=== PATIENT | male | born 1985 | race Caucasian/White ===

== ENCOUNTER 2019-05-05 22:00 | Emergency (ER) | payer OTHER ==
[2019-05-05 22:43] VITALS: BP 146/80; PULSE 103
--- NOTE | 2019-05-05 23:34 | EDM.PDOC ---
<Brennen Grant - Last Filed: 05/05/19 23:22> ED HPI GENERAL MEDICAL PROBLEM - General Chief Complaint: Laceration Stated Complaint: CUT FINGER Time Seen by Provider: 05/05/19 22:49 - History of Present Illness INITIAL COMMENTS - FREE TEXT/NARRATIVE: HISTORY AND PHYSICAL: History of present illness: Samuel is a 34 year old male who present to the ER for the evaluation of a cut to his left hand. The patient was attempting to open an a box with a double edge knife and accidently cut his hand. The patient informed he has been able to move his hand since the incident and denies major blood loss or previous injury to the hand.The patient is states he is up to date with his vaccinations. Review of systems: As per history of present illness and below otherwise all systems reviewed and negative. Past medical history: As per history of present illness and as reviewed below otherwise noncontributory. Surgical history: As per history of present illness and as reviewed below otherwise noncontributory. Social history: No reported history of drug or alcohol abuse. Family history: As per history of present illness and as reviewed below otherwise noncontributory. Physical exam: HEENT: Atraumatic, normocephalic, pupils reactive, negative for conjunctival pallor or scleral icterus, mucous membranes moist, throat clear, neck supple, nontender, trachea midline. Lungs: Clear to auscultation, breath sounds equal bilaterally, chest nontender. Heart: S1S2, regular, negative for clicks, rubs, or JVD. Abdomen: Deferred. Pelvis: Stable nontender. Genitourinary: Deferred. Rectal: Deferred. Extremities: Approximately 2.5 cm horizontal laceration to the webspace of the 1st and 2nd digit of the left hand. No tendon or connective tissue visible. Full sensation- full range of movement, Cap refill < 3sec. Neuro: Awake, alert, oriented. Cranial nerves II through XII unremarkable. Cerebellum unremarkable. Motor and sensory unremarkable throughout. Exam nonfocal. Diagnostics: None Therapeutics: Wound Closure with 2 simple interrupted sutures Impression: Laceration to the webspace of the first and 2nd digit of the left hand Plan: The patient should return to the ED for suture removal in 7 days. Educated the patient keeping the wound clean and dry. May apply OTC antibiotic ointment for two days. Definitive disposition and diagnosis as appropriate pending reevaluation and review of above. left hand Pain Score (Numeric/FACES): 3 - Related Data Allergies Allergy/AdvReac Type Severity Reaction Status Date / Time doxycycline Allergy Hives Verified 05/05/19 22:43 Home Meds: Home Meds . [No Known Home Meds] 08/23/15 [History] Past Medical History - Past Health History Medical/Surgical History: Denies Medical/Surgical History Endocrine/Metabolic History: Reports: Obesity/BMI 30+ - Past Surgical History Male Surgical History: Reports: Vasectomy Social & Family History - Family History Family Medical History: Noncontributory - Tobacco Use Smoking Status *Q: Current Every Day Smoker Years of Tobacco use: 15 Packs/Tins Daily: 1 - Recreational Drug Use Recreational Drug Use: No Course - Vital Signs Last Recorded V/S: Last Vital Signs Temp 36.3 C 05/05/19 22:30 Pulse 103 H 05/05/19 22:30 Resp 18 05/05/19 22:30 BP 146/80 H 05/05/19 22:30 Pulse Ox 95 05/05/19 22:30 - Orders/Labs/Meds Meds: Medications Discontinued Medications Generic Name Dose Route Start Last Admin Trade Name Freq PRN Reason Stop Dose Admin Bacitracin 1 dose 05/05/19 23:42 Bacitracin Oint 1 Gm TOP 05/05/19 23:43 ONETIME ONE Lidocaine HCl 5 ml 05/05/19 22:42 05/05/19 23:02 Xylocaine-Mpf 1% INJECT 05/05/19 22:43 5 ml ONETIME ONE Administration Departure - Departure Disposition: Home, Self-Care 01 Clinical Impression: Hand laceration Qualifiers: Encounter type: initial encounter Foreign body presence: without foreign body Laterality: left Qualified Code(s): S61.412A - Laceration without foreign body of left hand, initial encounter - Discharge Information Instructions: Puncture Wound, [id number] Referrals: PCP,None [Primary Care Provider] - Forms: ED Department Discharge Additional Instructions: The following information is given to patients seen in the emergency department who are being discharged to home. This information is to outline your options for follow-up care. We provide all patients seen in our emergency department with a follow-up referral. The need for follow-up, as well as the timing and circumstances, are variable depending upon the specifics of your emergency department visit. If you don't have a primary care physician on staff, we will provide you with a referral. We always advise you to contact your personal physician following an emergency department visit to inform them of the circumstance of the visit and for follow-up with them and/or the need for any referrals to a consulting specialist. The emergency department will also refer you to a specialist when appropriate. This referral assures that you have the opportunity for follow-up care with a specialist. All of these measure are taken in an effort to provide you with optimal care, which includes your follow-up. Under all circumstances we always encourage you to contact your private physician who remains a resource for coordinating your care. When calling for follow-up care, please make the office aware that this follow-up is from your recent emergency room visit. If for any reason you are refused follow-up, please contact the [facility] Emergency Department at and asked to speak to the emergency department charge nurse. [facility] [address] [place] [address] [place] [address] 1. Keep the area clean and dry. Continue to monitor for signs of infection as discussed. Sutures to be removed in 7-10 days. 2. Tylenol and/or ibuprofen as directed and as needed for pain management and discomfort. 3. Please follow-up with your primary care provider as discussed. Return to the ED as needed and as discussed. <Ojeda,Pretty - Last Filed: 05/05/19 23:54> ED HPI GENERAL MEDICAL PROBLEM - General Source of Information: Reports: Patient History Limitations: Reports: No Limitations - History of Present Illness INITIAL COMMENTS - FREE TEXT/NARRATIVE: I have personally and physically see the patient and agree with the above note as I am the supervising provider for this patient. Notes: The laceration is superficial and does not extend into the subcutaneous tissue. Minimal bleeding and full ROM of left extremity without difficulty or deficit. Capillary refill less than 2 seconds with radial pulses grossly intact of the left extremity. Discussed the importance for follow-up with a primary care provider. Voices understanding and is agreeable to plan of care. Denies any further questions or concerns at this time. Therapeutics: Up-to-date on tdap Prescription: None Impression: Hand laceration Plan: 1. Keep the area clean and dry. Continue to monitor for signs of infection as discussed. Sutures to be removed in 7-10 days. 2. Tylenol and/or ibuprofen as directed and as needed for pain management and discomfort. 3. Please follow-up with your primary care provider as discussed. Return to the ED as needed and as discussed. Definitive disposition and diagnosis as appropriate pending reevaluation and review of above. ED ROS GENERAL - Review of Systems Review Of Systems: ROS reveals no pertinent complaints other than HPI. ED EXAM, SKIN/RASH Exam: See Below (See dictation) ED SKIN PROCEDURES - Laceration/Wound Repair Left Hand Lac/Wound length In cm: 2.5 Appearance: Superficial, Linear, Clean Distal NVT: Neuro & Vascular Intact, No Tendon Injury Local Anesthesia - Lidocaine (Xylocaine): 1% Plain Local Anesthetic Volume: 5cc Skin Prep: Providone-Iodine (Betadine) Saline Irrigation (cc's): 50 Exploration/Debridement/Repair: Wound Explored, In a Bloodless Field, Explored to Base, No Foreign Material Found # of Sutures: 2 Suture Type: Silk, Interrupted Drain Placement: No Sterile Dressing Applied: Nurse Tetanus Status Addressed: Yes (up to date) Complications: No Departure - Departure Time of Disposition: 23:40
[2019-05-05] MEDS ORDERED: Bacitracin Oint 1 GM U/D Packet TOP ONE (23:42)
== END 2019-05-05 23:51 | disposition home or self-care (01) ==
LOC: MW.ED 22:00
DX: S61.412A Laceration without foreign body of left hand, initial encounter (principal); F17.210 Nicotine dependence, cigarettes, uncomplicated; Z88.1 Allergy status to other antibiotic agents; W26.0XXA Contact with knife, initial encounter
CPT/HCPCS: 12001; 99282; J2001; 99283

== ENCOUNTER 2020-04-13 19:15 | Emergency (ER) | payer OTHER ==
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
[2020-04-13] MEDS ORDERED: Sodium Chloride 0.9% 1,000 ML IV ONE (19:43)
[2020-04-13 20:01] LABS: BLOOD UREA NITROGEN,BUN 15 mg/dL (7.0-18.0); CARBON DIOXIDE,CO2 25.9 mmol/L (21.0-32.0); CHLORIDE,CL 105 mmol/L (98-107); GLUCOSE RANDOM 102 mg/dL (74-106); POTASSIUM,K 4.1 mmol/L (3.5-5.1); SODIUM,NA 140 mmol/L (136-148)
[2020-04-13 21:05] VITALS: BP 119/71; PULSE 85
== END 2020-04-13 21:04 | disposition home or self-care (01) ==
LOC: MW.ED 19:15
DX: T67.5XXA Heat exhaustion, unspecified, initial encounter (principal); E66.9 Obesity, unspecified; Z68.34 Body mass index [BMI] 34.0-34.9, adult; Z88.1 Allergy status to other antibiotic agents
CPT/HCPCS: 36415; 80053; 82550; 83735; 84484; 85025; 93005; 99284; J7030; 99282

== ENCOUNTER 2021-06-09 10:52 | Emergency (ER) | payer OTHER ==
[2021-06-09] MEDS ORDERED: Ondansetron 4 MG/2 ML SDV IVPUSH ONE (11:15)
[2021-06-09] MEDS ORDERED: Ketorolac 30 MG/ML SDV IVPUSH ONE (11:15)
[2021-06-09] MEDS ORDERED: Sodium Chloride 0.9% 1,000 ML IV ONE ×2 (11:15→12:31)
[2021-06-09] MEDS ORDERED: Sodium Chloride 0.9% 10 ML Syringe FLUSH PRN (11:16)
[2021-06-09] MEDS ORDERED: Sodium Chloride 0.9% 2.5 ML Syringe FLUSH PRN (11:16)
--- NOTE | 2021-06-09 11:23 | PCM.EKG ---
#1 Interpretation EKG Date: 06/09/21 Time: 11:01 Rhythm: NSR Rate (Beats/Min): 82 [place]: Normal P-Wave: Present QRS: Normal (q eave lead III, unchanged) ST-T: Normal (T wave inversion lead III unchanged) QT: Normal Comparison: No Change (04/13/20) EKG Interpretation Comments: Sinus Rhythm with nonspecific T wave inversion. S1Q3T3 unchanged
--- NOTE | 2021-06-09 11:26 | EDM.PDOC ---
ED HPI GENERAL MEDICAL PROBLEM - General Chief Complaint: General Stated Complaint: BREATHING PROBLEMS, CHEST PAIN Time Seen by Provider: 06/09/21 11:01 Source of Information: Reports: Patient History Limitations: Reports: No Limitations - History of Present Illness INITIAL COMMENTS - FREE TEXT/NARRATIVE: HISTORY AND PHYSICAL: History of present illness: Patient is a 36-year-old male who presents to the emergency department with complaints of cough, sweats and fatigue for approximately 1 week. The patient states that yesterday he started getting chest tightness and vomiting. He has been unable to eat not due to a decreased appetite but he has just been too fatigued. The patient states that he was seen by a physician on Thursday and prescribed Augmentin for a strep throat. The patient states that he started having diarrhea Thursday evening. Patient states that he has had some dizzy episodes and has been alternating between hot and cold flashes. Patient denies any fever, change in vision, syncope or near syncope. Denies any chest pain, back pain, shortness of breath or cough. Denies any abdominal pain, constipation or dysuria. Has not noted any blood in urine or stool. The patient states that he has been tested for Covid in the past but tested negative. He has not received Covid vaccine. In the emergency department the patient is hemodynamically stable with a blood pressure of 125/77, pulse 74, SPO2 99%, respiration rate 22 and shallow, temperature 97.6. Review of systems: As per history of present illness and below otherwise all systems reviewed and negative. Past medical history: As per history of present illness and as reviewed below otherwise noncontributory. Surgical history: As per history of present illness and as reviewed below otherwise noncontributory. Social history: See social history for further information Family history: As per history of present illness and as reviewed below otherwise noncontributory. Physical exam: General: Well developed and well nourished. Alert and orientated x 3. Nontoxic in appearance and in mild distress. Vital signs are stable and have been reviewed by me. Nursing notes were reviewed. HEENT: Atraumatic, normocephalic, pupils equal and reactive bilaterally, negative for conjunctival pallor or scleral icterus, mucous membranes moist, TMs normal bilaterally, throat clear, neck supple, nontender, trachea midline. No drooling or trismus noted. No meningeal signs. No hot potato voice noted. Lungs: Clear to auscultation bilaterally. No wheezes, rales, or rhonchi. Chest nontender. Normal work of breathing, no accessory muscles used. Heart: S1S2, regular rate and rhythm without overt murmur, gallops, or rubs. No JVD. No peripheral edema Abdomen: Soft, nondistended, nontender. Normoactive bowel sounds. Negative for masses or costovertebral tenderness. Skin: Intact, warm, moist. No lesions or rashes noted. Hematologic: No petechiae or purpra. Mucosa appropriate color and normal nail bed color and refill. Extremities: Atraumatic, moves all extremities per self without difficulty or deficits, negative for cords or calf pain. Neurovascular unremarkable. Neuro: Awake, alert, oriented. Cranial nerves II through XII unremarkable. Cerebellum unremarkable. Motor and sensory unremarkable throughout. Exam nonfocal. Psychiatric: Mood and affect are appropriate. Normal thought process. Answering questions appropriately. Notes: *This patient was seen and evaluated during the 2019 SARS-CoV-2 novel coronavirus pandemic period. Community viral transmission is ongoing at time of this encounter and the emergency department is operating under pandemic response procedures. As stated above the patient is a 36-year-old male who presents to the emergency department with complaints of cough, sweats, chest tightness, fatigue, inability to eat for 1 week. The patient's immediate EKG was normal sinus rhythm without any signs of a STEMI. The patient is not vaccinated for COVID-19 and is presenting as COVID-19 symptoms. I have ordered blood work, COVID-19 swab, chest x-ray, IV fluids, Toradol, Zofran. The patient is agreeable with this plan. The patient's CBC is unremarkable. CMP is remarkable for AST of 42 and an ALT of 76. The chest x-ray IMPRESSION: Mild patchy lower lung predominant opacities are nonspecific but suspicious for atypical infection such as COVID-19. The patient's Covid swab was positive. The patient is within the time for [facility] and I have on with her about the infusion. The patient is aware of the need for a home portable oxygen saturation monitor. In the emergency department the patient's oxygenation saturation has been stable. The patient received the fax sheet for patients, parents, and caregivers emergency use authorization of [facility] gave your consent for the infusion. We have faxed your information over to the infusion clinic and they will be calling you with a appointment time. I have talked with the patient about today's findings, in addition to providing specific details for plan of care. Reassessment at the time of disposition demonstrates that the patient is in no acute distress. The patient is stable for discharge, counseling was provided and we discussed in great detail signs and symptoms that would prompt them to return to the Emergency Department. Medication, follow up and supportive care measures were reviewed and discussed. Voices understanding and is agreeable to plan of care. Denies any further questions or concerns at this time. Diagnostics: CBC, CMP, EKG, CXR Therapeutics: IV fluids, Toradol 30 mg IV, Zofran 4 mg IV Impression: COVID-19 Plan: 1. You were evaluated today on an emergent basis. Your complaints of cough, sweats, chest tightness, fatigue and inability to eat for over a week was evaluated with blood work which is essentially normal. Your chest x-ray showed Covid pneumonia. You were positive for COVID-19. You were giving the fax sheet for patients, parents, and caregivers emergency use authorization [facility] gave your consent for the infusion. We have faxed your information over to the infusion clinic and they will be calling you with a appointment time. 2. Your COVID-19 screening is positive. That means you do have the coronavirus and you are considered contagious. Your vital signs and oxygen saturation are well enough that you were able to monitor your symptoms at home. Continue to monitor for trouble breathing, new confusion or inability to arouse, bluish lips or face or any of the other symptoms we discussed -if this occurs please return to the emergency room. 3. Please self quarantine until cleared by [facility] Department. Inform any persons that you have been in contact with since you started becoming symptomatic that you have tested positive; they should be made aware and take the appropriate steps as needed. 4. You can take NyQuil during the evening to help get a restful night sleep. May alternate Tylenol and ibuprofen as needed for pain and fever management. 5. The [facility] department will be calling you and following up with you. The [place] COVID 19 Hotline phone number , They are open Thursday - Thursday 7am - 7pm. Follow up with your primary care provider for re-evaluation and re-testing after the 10 day quarantine and discuss when you should be seen. Definitive disposition and diagnosis as appropriate pending reevaluation and review of above. general Pain Score (Numeric/FACES): 5 - Related Data Allergies Allergy/AdvReac Type Severity Reaction Status Date / Time doxycycline Allergy Hives Verified 06/09/21 11:07 Home Meds: Home Meds . [No Known Home Meds] 08/23/15 [History] Past Medical History - Past Health History Medical/Surgical History: Denies Medical/Surgical History Cardiovascular History: Reports: Other (See Below) Other Cardiovascular History: "borderline Hypertension" Genitourinary History: Reports: None Endocrine/Metabolic History: Reports: Obesity/BMI 30+ - Infectious Disease History Infectious Disease History: Reports: Chicken Pox - Past Surgical History Cardiovascular Surgical History: Reports: None Male Surgical History: Reports: Vasectomy Social & Family History - Family History Family Medical History: No Pertinent Family History - Caffeine Use Caffeine Use: Reports: Coffee, Soda ED ROS GENERAL - Review of Systems Review Of Systems: Comprehensive ROS is negative, except as noted in HPI. ED EXAM, GENERAL - Physical Exam Exam: See Below (See dictation) Course - Vital Signs Last Recorded V/S: Last Vital Signs Temp 97.6 F 06/09/21 11:07 Pulse 81 06/09/21 13:34 Resp 18 06/09/21 13:34 BP 115/87 06/09/21 13:34 Pulse Ox 97 06/09/21 13:34 - Orders/Labs/Meds Orders: Active Orders 24 hr Category Date Time Status Saline Lock Insert [OM.PC] Stat Oth 06/09/21 11:15 Ordered Labs: Laboratory Tests 06/09/21 06/09/21 06/09/21 Range/Units 11:09 11:09 11:09 WBC 4.53 (4.0-11.0) K/uL RBC 5.22 (4.50-5.90) M/uL Hgb 15.4 (13.0-17.0) g/dL Hct 43.3 (38.0-50.0) % MCV 83.0 (80.0-98.0) fL MCH 29.5 (27.0-32.0) pg MCHC 35.6 (31.0-37.0) g/dL RDW Std Deviation 39.3 (28.0-62.0) fl RDW Coeff of Jus 13 (11.0-15.0) % Plt Count 180 (150-400) K/uL MPV 11.30 (7.40-12.00) fL Neut % (Auto) 56.2 (48.0-80.0) % Lymph % (Auto) 34.7 (16.0-40.0) % [place] % (Auto) 8.2 (0.0-15.0) % Eos % (Auto) 0.7 (0.0-7.0) % Baso % (Auto) 0.2 (0.0-1.5) % Neut # (Auto) 2.6 (1.4-5.7) K/uL Lymph # (Auto) 1.6 (0.6-2.4) K/uL [place] # (Auto) 0.4 (0.0-0.8) K/uL Eos # (Auto) 0.0 (0.0-0.7) K/uL Baso # (Auto) 0.0 (0.0-0.1) K/uL Nucleated RBC % 0.0 /100WBC Nucleated RBCs # 0 K/uL Sodium 137 (136-148) mmol/L Potassium 3.9 (3.5-5.1) mmol/L Chloride 100 (98-107) mmol/L Carbon Dioxide 26.5 (21.0-32.0) mmol/L BUN 9 (7.0-18.0) mg/dL Creatinine 1.0 (0.8-1.3) mg/dL Est Cr Clr Drug Dosing TNP Estimated GFR (MDRD) > 60.0 ml/min Glucose 104 (74-106) mg/dL Calcium 8.6 (8.5-10.1) mg/dL Total Bilirubin 0.9 (0.2-1.0) mg/dL AST 42 H (15-37) IU/L ALT 76 H (14-63) IU/L Alkaline Phosphatase 53 (46-116) U/L Total Protein 7.7 (6.4-8.2) g/dL Albumin 3.9 (3.4-5.0) g/dL Globulin 3.8 (2.6-4.0) g/dL Albumin/Globulin Ratio 1.0 (0.9-1.6) SARS-CoV-2 RNA (MAYA) POSITIVE H (NEGATIVE) Meds: Medications Discontinued Medications Generic Name Dose Route Start Last Admin Trade Name Karriq PRN Reason Stop Dose Admin Sodium Chloride 1,000 mls @ 999 mls/hr 06/09/21 11:15 06/09/21 11:23 Normal Saline IV 06/09/21 12:15 999 mls/hr .BOLUS ONE Administration Sodium Chloride 1,000 mls @ 999 mls/hr 06/09/21 12:31 06/09/21 13:08 Normal Saline IV 06/09/21 13:31 999 mls/hr .BOLUS ONE Administration Ketorolac Tromethamine 30 mg 06/09/21 11:15 06/09/21 11:24 Ketorolac 30 Mg/Ml Sdv IVPUSH 06/09/21 11:16 30 mg ONETIME ONE Administration Ondansetron HCl 4 mg 06/09/21 11:15 06/09/21 11:24 Ondansetron 4 Mg/2 Ml Sdv IVPUSH 06/09/21 11:16 4 mg ONETIME ONE Administration Sodium Chloride 10 ml 06/09/21 11:16 06/09/21 11:23 Sodium Chloride 0.9% 10 Ml Syringe FLUSH 10 ml ASDIRECTED PRN Administration Keep Vein Open Sodium Chloride 2.5 ml 06/09/21 11:16 06/09/21 11:23 Sodium Chloride 0.9% 2.5 Ml Syringe FLUSH 2.5 ml ASDIRECTED PRN Administration Keep Vein Open Departure - Departure Time of Disposition: 13:02 Disposition: Home, Self-Care 01 Condition: Good Clinical Impression: Acute COVID-19 - Discharge Information *PRESCRIPTION DRUG MONITORING PROGRAM REVIEWED*: Not Applicable *COPY OF PRESCRIPTION DRUG MONITORING REPORT IN PATIENT DANYELLE: Not Applicable Instructions: COVID-19 Vaccine Information, COVID-19: Quarantine vs. Isolation - [facility] (09/13/2020), COVID-19: What to Do if You Are Sick - [facility] (09/27/2020) Referrals: PCP,None [Primary Care Provider] - Forms: ED Department Discharge Additional Instructions: The following information is given to patients seen in the emergency department who are being discharged to home. This information is to outline your options for follow-up care. We provide all patients seen in our emergency department with a follow-up referral. The need for follow-up, as well as the timing and circumstances, are variable depending upon the specifics of your emergency department visit. If you don't have a primary care physician on staff, we will provide you with a referral. We always advise you to contact your personal physician following an emergency department visit to inform them of the circumstance of the visit and for follow-up with them and/or the need for any referrals to a consulting specialist. The emergency department will also refer you to a specialist when appropriate. This referral assures that you have the opportunity for follow-up care with a specialist. All of these measure are taken in an effort to provide you with optimal care, which includes your follow-up. Under all circumstances we always encourage you to contact your private physician who remains a resource for coordinating your care. When calling for follow-up care, please make the office aware that this follow-up is from your recent emergency room visit. If for any reason you are refused follow-up, please contact the [facility] Emergency Department at and asked to speak to the emergency department charge nurse. [facility] [address] [place] [address] [address] Plan: 1. You were evaluated today on an emergent basis. Your complaints of cough, sweats, chest tightness, fatigue and inability to eat for over a week was evaluated with blood work which is essentially normal. Your chest x-ray showed Covid pneumonia. You were positive for COVID-19. You were giving the fax sheet for patients, parents, and caregivers emergency use authorization of [facility] gave your consent for the infusion. We have faxed your information over to the infusion clinic and they will be calling you with a appointment time. 2. Your COVID-19 screening is positive. That means you do have the coronavirus and you are considered contagious. Your vital signs and oxygen saturation are well enough that you were able to monitor your symptoms at home. Continue to monitor for trouble breathing, new confusion or inability to arouse, bluish lips or face or any of the other symptoms we discussed -if this occurs please return to the emergency room. 3. Please self quarantine until cleared by [facility] Department. Inform any persons that you have been in contact with since you started becoming symptomatic that you have tested positive; they should be made aware and take the appropriate steps as needed. 4. You can take NyQuil during the evening to help get a restful night sleep. May alternate Tylenol and ibuprofen as needed for pain and fever management. 5. The [facility] department will be calling you and following up with you. The [employer] Hotline phone number , They are open Thursday - Thursday 7am - 7pm. Follow up with your primary care provider for re-evaluation and re-testing after the 10 day quarantine and discuss when you should be seen. Sepsis Event Note (ED) - Evaluation Sepsis Screening Result: No Definite Risk - Focused Exam Vital Signs: Vital Signs Temp Pulse Resp BP Pulse Ox 06/09/21 13:34 81 18 115/87 97 06/09/21 12:00 80 18 116/59 L 98 06/09/21 11:13 18 06/09/21 11:07 97.6 F 74 20 125/77 98 - My Orders Last 24 Hours: My Active Orders 06/09/21 11:15 Saline Lock Insert [OM.PC] Stat - Assessment/Plan Last 24 Hours: My Active Orders 06/09/21 11:15 Saline Lock Insert [OM.PC] Stat
[2021-06-09 11:39] LABS: BLOOD UREA NITROGEN,BUN 9 mg/dL (7.0-18.0); CARBON DIOXIDE,CO2 26.5 mmol/L (21.0-32.0); CHLORIDE,CL 100 mmol/L (98-107); GLUCOSE RANDOM 104 mg/dL (74-106); POTASSIUM,K 3.9 mmol/L (3.5-5.1); SODIUM,NA 137 mmol/L (136-148)
--- NOTE | 2021-06-09 11:58 | CR ---
INDICATION: Cough, shortness breath, chest tightness. TECHNIQUE: PA/lateral chest radiographs. COMPARISON: None available. FINDINGS: Mild patchy opacities predominating in the right greater than left lower lungs. No pneumothorax or pleural effusion. Cardiac and mediastinal contours within normal limits. IMPRESSION: Mild patchy lower lung predominant opacities are nonspecific but suspicious for atypical infection such as COVID-19. Dictated by David Simental MD @ 06/09/2021 11:55:43 AM Dictated by: David Simental MD @ 06/09/2021 11:56:15 (Electronically Signed)
[2021-06-09 13:35] VITALS: BP 115/87; PULSE 81
== END 2021-06-09 13:35 | disposition home or self-care (01) ==
LOC: MW.ED 10:52
DX: U07.1 COVID-19 (principal); I10 Essential (primary) hypertension; E66.9 Obesity, unspecified; Z68.30 Body mass index [BMI] 30.0-30.9, adult; Z88.1 Allergy status to other antibiotic agents
CPT/HCPCS: 36415; 71045; 80053; 85025; 87635; 93005; 96374; 96375; 99285; J1885; J2405; J7030; U0002

== ENCOUNTER 2025-04-23 14:36 | Emergency (ER) | payer OTHER ==
[2025-04-23] MEDS: Tetracaine HCl/PF 0.5% 4 ML Bottle EYEBOTH ONE (15:48)
[2025-04-23 16:11] VITALS: BP 131/81; PULSE 78
[2025-04-23] MEDS: Diphtheria,Pertussis(Acell),Tetanus Vaccine 0.5 ML Syringe IM ONE (16:13)
== END 2025-04-23 16:16 | disposition home or self-care (01) ==
LOC: MW.ED 14:36
DX: S05.01XA Injury of conjunctiva and corneal abrasion without foreign body, right eye, initial encounter (principal); Z75.3 Unavailability and inaccessibility of health-care facilities; Z88.8 Allergy status to other drugs, medicaments and biological substances; Z23 Encounter for immunization; Z79.899 Other long term (current) drug therapy; X58.XXXA Exposure to other specified factors, initial encounter; Y93.89 Activity, other specified
CPT/HCPCS: 90471; 90715; 99283; 99283-25; J3490